=== PATIENT | female | born 1985 | race African-American/Black ===

== ENCOUNTER 2018-11-04 05:38 | Emergency (ER) | payer OTHER ==
[2018-11-04] MEDS ORDERED: predniSONE 20 MG TAB ONE (06:25)
--- NOTE | 2018-11-04 06:31 | EDPHYS ---
Physician Documentation [facility] Name: Sandi Villa Age: 33 yrs Sex: Female : 1985 Arrival Date: 11/04/2018 Time: 05:46 Bed 18 Private MD: ED Physician Mohsen Reyez HPI: 11/04 06:20 This 33 yrs old Black Female presents to ER via Wheelchair with complaints of Pelvic snw Pain, Hip Pain, 16 WKS PREG. 06:20 The patient presents with pain that is acute, and decreased range of motion. The snw symptoms are located in the low back. Location: right hip and buttocks. The problem was sustained stretching s/p workout. Onset: The symptoms/episode began/occurred suddenly, last night, and became worse and became persistent this morning. Modifying factors: the patient symptoms are aggravated by 16 wks IUP. Associated signs and symptoms: Pertinent negatives: constipation, incontinence, numbness, tingling, urinary retention, vomiting, weakness. Severity of symptoms: At their worst the symptoms were severe. The patient has experienced a previous episode, approximately 1.5 years ago, but today's symptoms are worse. The patient has not recently seen a physician. no vaginal discharge/bleeding, no numbness. 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 - Social history:: Smoking status: Patient/guardian denies using tobacco, Patient/guardian denies using alcohol, street drugs. - Ebola Screening: : Patient negative for fever greater than or equal to 101.5 degrees Fahrenheit, and additional compatible Ebola Virus Disease symptoms Patient denies exposure to infectious person Patient denies travel to an Ebola-affected area in the 21 days before illness onset. ROS: 06:19 Constitutional: Negative for fever, chills, and weight loss, Eyes: Negative for injury, snw pain, redness, and discharge, ENT: Negative for injury, pain, and discharge, Neck: Negative for injury, pain, and swelling, Cardiovascular: Negative for chest pain, palpitations, and edema, Respiratory: Negative for shortness of breath, cough, wheezing, and pleuritic chest pain, Abdomen/GI: Negative for abdominal pain, nausea, vomiting, diarrhea, and constipation, : Negative for injury, bleeding, discharge, and swelling, MS/Extremity: Negative for injury and deformity, Skin: Negative for injury, rash, and discoloration, Neuro: Negative for headache, weakness, numbness, tingling, and seizure, Psych: Negative for depression, anxiety, suicide ideation, homicidal ideation, and hallucinations. 06:19 Back: Positive for decreased range of motion, pain with movement, radiated pain, of the right hip and buttocks, R>L. Exam: 06:18 Constitutional: This is a well developed, well nourished patient who is awake, alert, snw and in no acute distress. Head/Face: Normocephalic, atraumatic. Eyes: Pupils equal round and reactive to light, extra-ocular motions intact. Lids and lashes normal. Conjunctiva and sclera are non-icteric and not injected. Cornea within normal limits. Periorbital areas with no swelling, redness, or edema. ENT: Nares patent. No nasal discharge, no septal abnormalities noted. Tympanic membranes are normal and external auditory canals are clear. Oropharynx with no redness, swelling, or masses, exudates, or evidence of obstruction, uvula midline. Mucous membranes moist. Neck: Trachea midline, no thyromegaly or masses palpated, and no cervical lymphadenopathy. Supple, full range of motion without nuchal rigidity, or vertebral point tenderness. No Meningismus. Chest/axilla: Normal chest wall appearance and motion. Nontender with no deformity. No lesions are appreciated. Cardiovascular: Regular rate and rhythm with a normal S1 and S2. No gallops, murmurs, or rubs. Normal PMI, no JVD. No pulse deficits. Respiratory: Lungs have equal breath sounds bilaterally, clear to auscultation and percussion. No rales, rhonchi or wheezes noted. No increased work of breathing, no retractions or nasal flaring. Abdomen/GI: Soft, non-tender, with normal bowel sounds. No distension or tympany. No guarding or rebound. No evidence of tenderness throughout. Skin: Warm, dry with normal turgor. Normal color with no rashes, no lesions, and no evidence of cellulitis. MS/ Extremity: Pulses equal, no cyanosis. Neurovascular intact. Full, normal range of motion. Neuro: Awake and alert, GCS 15, oriented to person, place, time, and situation. Cranial nerves II-XII grossly intact. Motor strength 5/5 in all extremities. Sensory grossly intact. Cerebellar exam normal. Normal gait. 06:18 Back: pain, that is moderate, ROM is painful, with rotation to the right, with rotation to the left, with flexion, CVA tenderness, is absent. Vital Signs: 05:55 BP 112 / 84; Pulse 76; Resp 17; Temp 98.5; Pulse Ox 100% ; Weight 65.77 kg; Height 5 rr5 ft. 7 in. (170.18 cm); Pain 6/10; 06:18 BP 114 / 75; Pulse 70; Resp 17; Temp 98.4; Pulse Ox 99% ; Pain 6/10; rr5 05:55 Body Mass Index 22.71 (65.77 kg, 170.18 cm) rr5 MDM: 06:12 Data reviewed: vital signs, nurses notes. Data interpreted: Pulse oximetry: on room air snw is 100 %. Interpretation: normal. Counseling: I had a detailed discussion with the patient and/or guardian regarding: the historical points, exam findings, and any diagnostic results supporting the discharge/admit diagnosis, the presence of at least one elevated blood pressure reading (>120/80) during this emergency department visit, the need for outpatient follow up, for definitive care, to return to the emergency department if symptoms worsen or persist or if there are any questions or concerns that arise at home. Special discussion: Based on the history and exam findings, there is no indication for further emergent testing or inpatient evaluation. I discussed with the patient/guardian the need to see the OB Gyne specialist for further evaluation of the symptoms. ED course: Offered [place] second to severity of pain, declined second to 16 week . 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 06:31 Patient medically screened. snw 11/04 06:01 Order name: Urine Culture snw 11/04 06:01 Order name: Urine Microscopic Only sn 11/04 06:01 Order name: Urine Dipstick-Ancillary (obtain specimen); Complete Time: 06:30 sn 11/04 06:30 Order name: Urine Dipstick--Ancillary (enter results); Complete Time: 07:06 ar5 Administered Medications: 06:18 Drug: predniSONE 40 mg Route: PO; rr5 06:47 Follow up: Response: No adverse reaction rr5 Disposition: 08:24 Co-signature as Attending Physician, Mohsen Reyez MD I agree with the assessment and kdr plan of care. Disposition: 11/04/18 06:31 Discharged to Home. Impression: Sciatica, right side, state. - Condition is Stable. - Discharge Instructions: Sciatica, Back Pain in , Back Exercises, Rsex-[id number]-Omyd, Second Trimester of , [id number]-dd-[id number], Heat Therapy, Radicular Pain. - Prescriptions for Prednisone 20 mg Oral Tablet - take 2 tablet by ORAL route once daily for 5 days; 10 tablet. - Medication Reconciliation Form, Thank You Letter, Antibiotic Education, Prescription Opioid Use form. - Follow up: Emergency Department; When: As needed; Reason: Worsening of condition. Follow up: Private Physician; When: 1 - 2 days; Reason: Recheck today's complaints, Continuance of care, Re-evaluation by your physician. Signatures: Dispatcher [employer] EDND Mohsen Reyez MD MD kdr Therrien, Shelly, PACKING HOUSE SUPERVISOR-C PACKING HOUSE SUPERVISOR-Csnw Simon Treadwell, RN RN rr5 Corrections: (The following items were deleted from the chart) 06:48 06:31 11/04/2018 06:31 Discharged to Home. Impression: Sciatica, right side; rr5 state. Condition is Stable. Forms are Medication Reconciliation Form, Thank You Letter, Antibiotic Education, Prescription Opioid Use. Follow up: Emergency Department; When: As needed; Reason: Worsening of condition. Follow up: Private Physician; When: 1 - 2 days; Reason: Recheck today's complaints, Continuance of care, Re-evaluation by your physician. snw
--- NOTE | 2018-11-04 06:31 | ER ---
Nurse's Notes [facility] Name: Sandi Villa Age: 33 yrs Sex: Female : 1985 Arrival Date: 11/04/2018 Time: 05:46 Bed 18 Private MD: Diagnosis: Sciatica, right side; state Presentation: 11/04 05:55 Presenting complaint: Patient states: I work out around 2030 H last night while I am rr5 doing my stretching my lower back started to have sharp pain radiates to my butt more on the right side. I cannot bend down. around 0400 H I started to have pelvic cramps, denies any vaginal discharge. 05:55 Transition of care: patient was not received from another setting of care. Onset of rr5 symptoms was November 03, 2018 at 20:30. Risk Assessment: Do you want to hurt yourself or someone else? Patient reports no desire to harm self or others. Initial Sepsis Screen: Does the patient meet any 2 criteria? No. Patient's initial sepsis screen is negative. Does the patient have a suspected source of infection? No. Patient's initial sepsis screen is negative. Care prior to arrival: None. 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 - Social history:: Smoking status: Patient/guardian denies using tobacco, Patient/guardian denies using alcohol, street drugs. - Ebola Screening: : Patient negative for fever greater than or equal to 101.5 degrees Fahrenheit, and additional compatible Ebola Virus Disease symptoms Patient denies exposure to infectious person Patient denies travel to an Ebola-affected area in the 21 days before illness onset. Screenin:07 Abuse screen: Denies threats or abuse. Denies injuries from another. Nutritional rr5 screening: No deficits noted. Tuberculosis screening: No symptoms or risk factors identified. Fall Risk Gait- Impaired (20 pts.). Total Junior Fall Scale indicates No Risk (0-24 pts). Assessment: 06:05 General: Appears in no apparent distress. uncomfortable, Behavior is calm, cooperative, rr5 appropriate for age. Pain: Complains of pain in back Pain radiates to buttocks and pelvis Pain currently is 6 out of 10 on a pain scale. Quality of pain is described as sharp, Pain began suddenly, Is intermittent, Aggravated by repositioning. Neuro: Level of Consciousness is awake, alert, obeys commands, Oriented to person, place, time, situation, Appropriate for age. Cardiovascular: Capillary refill < 3 seconds Patient's skin is warm and dry. Respiratory: Airway is patent Respiratory effort is even, unlabored, Respiratory pattern is regular, symmetrical. GI: No signs and/or symptoms were reported involving the gastrointestinal system. : Reports pelvic cramps. EENT: No signs and/or symptoms were reported regarding the EENT system. Derm: Skin is intact, Skin temperature is warm. Musculoskeletal: Circulation, motion, and sensation intact. Capillary refill < 3 seconds, Range of motion: limited in left hip and right hip Reports pain in lumbar area, left low back, right low back and buttocks. 06:40 Reassessment: Patient appears in no apparent distress at this time. Patient is alert, rr5 oriented x 3, equal unlabored respirations, skin warm/dry/pink. discharge instruction given and explained without complaints made. Vital Signs: 05:55 BP 112 / 84; Pulse 76; Resp 17; Temp 98.5; Pulse Ox 100% ; Weight 65.77 kg; Height 5 rr5 ft. 7 in. (170.18 cm); Pain 6/10; 06:18 BP 114 / 75; Pulse 70; Resp 17; Temp 98.4; Pulse Ox 99% ; Pain 6/10; rr5 05:55 Body Mass Index 22.71 (65.77 kg, 170.18 cm) rr5 ED Course: 05:46 Patient arrived in ED. es 06:00 Patient has correct armband on for positive identification. Placed in gown. Bed in low rr5 position. Call light in reach. Side rails up X2. Pulse ox on. NIBP on. 06:00 Arm band placed on. rr5 06:01 Chance, Dipti, AUDIENCE DEVELOPMENT MANAGER-C [facility]. snw 06:01 Mohsen Reyez MD is Attending Physician. snw 06:01 Triage completed. rr5 06:30 Simon Treadwell, RN is Primary Nurse. rr5 06:41 No provider procedures requiring assistance completed. Patient did not have IV access rr5 during this emergency room visit. Administered Medications: 06:18 Drug: predniSONE 40 mg Route: PO; rr5 06:47 Follow up: Response: No adverse reaction rr5 Outcome: 06:31 Discharge ordered by . snw 06:41 Discharged to home via wheelchair, with family. rr5 06:41 Condition: stable 06:41 Discharge instructions given to patient, Instructed on discharge instructions, follow up and referral plans. medication usage, Demonstrated understanding of instructions, follow-up care, medications, Prescriptions given X 1. 06:48 Patient left the ED. rr5 Signatures: Dipti Fletcher FNP-C AUDIENCE DEVELOPMENT MANAGER-Csnw Akosua Kendrick Raymond, RN RN rr5
[2018-11-04 06:32] LABS: Urine Blood NEGATIVE (NEG); Urine Glucose NEGATIVE (NEG); Urine Protein NEGATIVE (NEG); Urine pH 5.5 (5.0-7.0)
[2018-11-04 07:06] LABS: Urine Bacteria 20-50 /HPF (<20); Urine RBC <5 /HPF (NONE SEEN)
[2018-11-04 07:07] LABS: Urine Mucus 1+ /HPF (NONE SEEN)
[2018-11-04 07:08] LABS: Urine Culture Reflex Order NOT NEEDED
== END 2018-11-04 06:48 | disposition home or self-care (01) ==
LOC: ER 05:38
DX: M54.31 Sciatica, right side (principal); Z3A.16 16 weeks gestation of pregnancy
CPT/HCPCS: 81003; 81015; 87086; 87088; 99283; J7512